=== PATIENT | female | born 1940 | race Caucasian/White ===

== ENCOUNTER → 2020-10-18 10:18 | Outpatient (CLI) | payer MEDICARE, SELFPAY ==
--- NOTE | 2020-10-18 10:25 | DI.MRI.S_ITS ---
PROCEDURE: MR FOOT RT WO CON INDICATIONS: Cyst TECHNIQUE: Noncontrast sagittal T1 spin echo and T2 fast spin echo with fat saturation, long-axis T1 spin echo and T2 fast spin echo with fat saturation, short-axis T1 spin echo and T2 fast spin echo with fat saturation through the forefoot. COMPARISON: None. FINDINGS: Image quality: Excellent. Bones and joints: Moderate midfoot joint osteoarthritic changes are seen with joint space narrowing, subchondral sclerosis and cyst formation. Subcortical edema is noted involving medial navicular cuneiform joint, proximal portion of lateral cuneiform and lateral portion of calcaneocuboid joint without discrete fracture line. Prominent lateral marginal osteophyte formation at calcaneocuboid joint is seen. No suspicious intraosseous lesion. No evidence of metatarsal stress fracture. Mild forefoot joint osteoarthritic changes are seen more prominent in 1st MTP joint. Soft tissues: The visualized plantar foot muscles demonstrate normal signal and bulk. Visualized flexor and extensor tendons appear intact, without tenosynovitis. The distal insertions of the peroneus brevis and longus tendons appear intact. The principal Lisfranc ligament appears intact. No soft tissue ganglion cysts or bursal fluid collections. Sagittal images demonstrate no evidence for plantar plate tears. IMPRESSION: 1. Osteoarthritic changes in midfoot and forefoot joints most prominent involving calcaneocuboid joint with prominent lateral marginal osteophyte formation and mild overlying soft tissue swelling likely account for patient's clinical finding. No ganglion cyst or soft tissue mass formation is seen in this area. 2. No fracture or dislocation. No suspicious intraosseous lesion. 3. Tendons and ligaments of midfoot and forefoot are grossly intact. Dictated by: Sal Cook M.D. on 10/18/2020 at 13:40 Approved by: Sal Cook M.D. on 10/18/2020 at 14:33
== END ==
PROVIDERS: PCP Internal Medicine; Referring Provider Internal Medicine; Visit Provider Internal Medicine
DX: L72.9 Follicular cyst of the skin and subcutaneous tissue, unspecified (principal)
CPT/HCPCS: 73718

== ENCOUNTER → 2022-01-14 09:22 | Outpatient (CLI) | payer MEDICARE, SELFPAY ==
--- NOTE | 2022-01-14 | DI.RAD.S_ITS ---
PROCEDURE: XR HAND LT MIN 3V INDICATIONS: bilateral hand pain TECHNIQUE: 3 views of the hand(s) acquired. COMPARISON: None. FINDINGS: Bones: Generalized decrease in osseous mineralization noted. First carpometacarpal joint space narrowing and subchondral sclerosis noted. Intercarpal and radiocarpal joint space narrowing with subchondral cysts Soft tissues: No suspicious soft tissue calcifications. IMPRESSION: Osteopenia and osteoarthritis without fracture Approved by: Mehrdad Bridges M.D. on 01/14/2022 at 10:25
--- NOTE | 2022-01-14 | DI.RAD.S_ITS ---
PROCEDURE: XR HAND RT MIN 3V INDICATIONS: bilateral hand pain TECHNIQUE: 3 views of the hand(s) acquired. COMPARISON: None. FINDINGS: Bones: Generalized decrease in osseous mineralization noted. Joint space narrowing and subchondral sclerosis noted involving the radiocarpal, intercarpal and 1st carpometacarpal joints Soft tissues: No suspicious soft tissue calcifications. IMPRESSION: Osteopenia and osteoarthritis without fracture or foreign body. Approved by: Mehrdad Bridges M.D. on 01/14/2022 at 10:27
== END ==
PROVIDERS: PCP Physician Assistant; Referring Provider Physician Assistant; Visit Provider Physician Assistant
DX: M25.50 Pain in unspecified joint (principal); M85.842 Other specified disorders of bone density and structure, left hand; M85.841 Other specified disorders of bone density and structure, right hand; M19.042 Primary osteoarthritis, left hand; M19.041 Primary osteoarthritis, right hand
CPT/HCPCS: 73130

== ENCOUNTER → 2022-09-08 12:14 | Outpatient (CLI) | payer OTHER, SELFPAY ==
--- NOTE | 2022-09-08 | DI.MRI.S_ITS ---
PROCEDURE: MR SHOULDER LT WO CON INDICATIONS: Pain in left shoulder TECHNIQUE: Noncontrast oblique coronal T2 fast spin echo with fat saturation, oblique sagittal T1 spin echo and T2 fast spin echo with fat saturation, axial T1 spin echo and T2 fast spin echo with fat saturation through the shoulder. COMPARISON: None. FINDINGS: Image quality: Excellent. Rotator cuff: There is full-thickness tear at the junction of the supraspinatus and subscapularis tendons. No tendon retraction. There is moderate supraspinatus, infraspinatus, and subscapularis tendinosis. Sagittal images demonstrate no muscle atrophy. Bones and bursae: No bone marrow contusions or fractures. Moderate acromioclavicular and mild glenohumeral joint degeneration. The acromion demonstrates conventional anatomy, without an os acromiale. There is subacromial-subdeltoid bursal fluid consistent with bursitis. Small glenohumeral joint effusion. Capsule and soft tissues: Degenerative posterior superior labral fraying at 1:00-3:00. Position The long head of the biceps tendon demonstrates normal location and morphology. The rotator interval appears normal, without fibrosis. The coracohumeral ligament is normal in thickness. Slightly prominent axillary lymph nodes are noted, measuring up 1 cm in short axis. IMPRESSION: 1. Full-thickness tear at the junction of the supraspinatus and infraspinatus tendons. No tendon retraction or rotator cuff muscle atrophy. 2. Moderate supraspinatus, infraspinatus and subscapularis tendinosis. 3. Subacromial-subdeltoid bursitis. 4. Moderate acromioclavicular and mild glenohumeral joint degeneration. 5. Degenerative posterior superior labral fraying. 6. Mildly prominent left axillary lymph nodes are present, which is nonspecific. Recommend clinical follow-up Dictated by: Rivas Parker M.D. on 09/08/2022 at 17:51 Approved by: Rivas Parker M.D. on 09/10/2022 at 11:05
== END ==
PROVIDERS: PCP Physician Assistant; Referring Provider Family Medicine; Visit Provider Family Medicine
DX: M75.122 Complete rotator cuff tear or rupture of left shoulder, not specified as traumatic (principal); M19.012 Primary osteoarthritis, left shoulder; M75.52 Bursitis of left shoulder; M25.512 Pain in left shoulder; R59.0 Localized enlarged lymph nodes; R29.898 Other symptoms and signs involving the musculoskeletal system
CPT/HCPCS: 73221